=== PATIENT | female | born 1950 | race Caucasian/White ===

== ENCOUNTER 2017-03-04 00:19 | Emergency (ER) | payer OTHER ==
[~2017-03-04] VITALS: Ht 167.6 cm; Wt 69.7 kg
[~2017-03-04 00:19] MED LIST: FISH OIL500 MG PO; LIDODERM 5% P1 PATCH TD; MELOXICAM15 MG PO; METAMUCIL MULT425 GM PO; ROXICODONE5 MG PO; TYLENOL ARTHRI650 MG PO; VERAPAMIL HCL120 M2 PO; VITAMIN B COMP1 EACH PO; VITAMIN D2000 INTUN PO
[2017-03-04] MEDS ORDERED: KENALOG,ARISTOC80 G1 TP (01:58)
[2017-03-04] MEDS ORDERED: PREDNISONE20 MG PO (01:58)
[2017-03-04 02:11] VITALS: BP 167/100
== END 2017-03-04 02:12 | disposition home or self-care (01) ==
LOC: EME 00:19
DX: T60.91XA Toxic effect of unspecified pesticide, accidental (unintentional), initial encounter (principal); L25.3 Unspecified contact dermatitis due to other chemical products
CPT/HCPCS: 99281; 99283; J7512